=== PATIENT | female | born 1955 | race Two or more races ===

== ENCOUNTER 2024-02-17 09:39 | Outpatient (CLI) | payer OTHER | END 2024-02-17 09:41 | disposition home or self-care (01) | LOC: SONOGRAMA 09:39 | PROVIDERS: ATTEND Pathology Anatomic Pathology & Clinical Pathology | DX: D34 Benign neoplasm of thyroid gland (principal); E07.89 Other specified disorders of thyroid; E07.9 Disorder of thyroid, unspecified ==